=== PATIENT | female | born 1945 | race Caucasian/White ===

== ENCOUNTER → 2016-05-28 | Outpatient (CLI) | payer OTHER ==
[~2016-05-28] MED LIST: ALOE VERA PO; AMLO5TAB2 PO; ASPI-496 PO; CAL ZINC PO; CEPH-368 PO; CHOL5000 PO; CITA10TA4 PO; CITA20TA9 PO; DOCU100T6 PO; ESTR0.6246 VG; GINKO BILOBA PO; GLUC10002 PO; HYDR-882 PO; LATA2.5D3 EACHEYE; LEVO112T2 PO; LEVO112T4 PO; OMEG1CAP12 PO; OMEG300C PO; OMEP20CA9 PO; OMEP20TA62 PO; ONDA4TAB10 PO; [UNRECOGNIZED DRUG - CODE] PO
== END | disposition home or self-care (01) ==
LOC: STAR 08:34
PROVIDERS: ATTEND Colon & Rectal Surgery
DX: Z01.818 Encounter for other preprocedural examination (principal)
CPT/HCPCS: 81001; 87086; 93005

== ENCOUNTER 2016-06-05 08:56 | Inpatient (IN) | payer OTHER ==
[~2016-06-05] VITALS: Ht 162.6 cm; Wt 104.2 kg
[~2016-06-05 08:56] MED LIST changes: +BUPIVACAINE/PF-EPI 0.25% 1:200K ONE
[2016-06-05] MEDS ORDERED: FENTANYL PF 250 MCG/5ML ONE (09:02)
[2016-06-05 09:20] VITALS: BP 135/89
[2016-06-05] MEDS ORDERED: METR500T4 PO (09:20)
[2016-06-05] MEDS ORDERED: NEOM500T PO (09:20)
[2016-06-05] MEDS ORDERED: LACTATED RINGERS 1,000 ML IV SCH (09:23)
[2016-06-05] MEDS ORDERED: EPHEDRINE 50 MG/ML, 1ML ONE (09:34)
[2016-06-05] MEDS ORDERED: ROCURONIUM 10 MG/ML ONE (09:34)
[2016-06-05] MEDS ORDERED: ONDANSETRON 2MG/ML, 2ML ONE (09:34)
[2016-06-05] MEDS ORDERED: PHENYLEPHRINE 10 MG/ML ONE (09:34)
[2016-06-05] MEDS ORDERED: GLYCOPYRROLATE 0.2MG/1ML ONE (09:34)
[2016-06-05] MEDS ORDERED: CEFOTETAN 2 GM ONE (09:34)
[2016-06-05] MEDS ORDERED: KETOROLAC 30 MG/1 ML ONE (09:34)
[2016-06-05] MEDS ORDERED: PROPOFOL 10 MG/ML, 20ML ONE (09:34)
[2016-06-05] MEDS ORDERED: DEXAMETHASONE 4 MG/ML, 1ML ONE (09:34)
[2016-06-05] MEDS ORDERED: ACETAMINOPHEN 650 MG/20.3 ML UDC ONE (11:28)
[2016-06-05] MEDS ORDERED: ACETAMINOPHEN 325 MG TABLET ONE (11:29)
[2016-06-05] MEDS ORDERED: FENTANYL PF 100 MCG/2ML ONE (11:29)
[2016-06-05] MEDS ORDERED: ACETAMINOPHEN 325 MG TABLET PO PRN (11:30)
[2016-06-05] MEDS ORDERED: OXYcodone 5 MG/5 ML ORAL.SOL UDC PO PRN (11:30)
[2016-06-05] MEDS ORDERED: PROMETHAZINE 25 MG/ML, 1ML IV PRN (11:30)
[2016-06-05] MEDS ORDERED: ONDANSETRON 2MG/ML, 2ML IVPush PRN (11:30)
[2016-06-05] MEDS ORDERED: OXYcodone 5 MG/5 ML ORAL.SOL UDC ONE (11:36)
[2016-06-05] MEDS: FENTANYL PF 100 MCG/2ML IV PRN ×2 (11:45→11:55)
[2016-06-05] MEDS ORDERED: LACTATED RINGERS 500 ML IVBOLUS ONE (13:30)
[2016-06-05] MEDS ORDERED: ADENOSINE 6 MG/2 ML ONE (14:05)
[2016-06-05] MEDS ORDERED: ADENOSINE 6 MG/2 ML IVPush ONE (14:30)
[2016-06-05 14:53] LABS: BLOOD UREA NITROGEN 21 mg/dL (7-18)
[2016-06-05] MEDS ORDERED: DIPHENHYDRAMINE 25 MG CAPSULE PO PRN (16:00)
[2016-06-05] MEDS ORDERED: DIPHENHYDRAMINE 50 MG/ML, 1ML IV PRN (16:00)
[2016-06-05] MEDS ORDERED: ONDANSETRON 2MG/ML, 2ML IV PRN (16:30)
[2016-06-05] MEDS: KETOROLAC 30 MG/1 ML IV SCH ×2 (16:35→22:16)
[2016-06-05] MEDS: POTASSIUM CHLORIDE 20 MEQ in SODIUM CHLORIDE 0.9% 1,000 ML IV SCH (16:35)
[2016-06-05] MEDS: OXYcodone/APAP 5/325MG TABLET PO PRN ×2 (18:42→22:46)
[2016-06-05 21:03] VITALS: BP 100/65
[2016-06-05] MEDS: AMLODIPINE 5 MG TABLET PO SCH (22:16)
[2016-06-05] MEDS: CEFOTETAN PMX 2GM/50ML 50 ML IVPB SCH (22:17)
[2016-06-05] MEDS: LATANOPROST OPHTH 0.005%, 2.5ML OP SCH (22:27)
[2016-06-06 02:00] VITALS: BP 111/62
[2016-06-06] MEDS: OXYcodone/APAP 5/325MG TABLET PO PRN ×5 (02:59→20:19)
[2016-06-06] MEDS: KETOROLAC 30 MG/1 ML IV SCH ×4 (05:19→22:43)
[2016-06-06] MEDS: LEVOTHYROXINE 112 MCG TABLET PO SCH (05:19)
[2016-06-06] MEDS: ASPIRIN 81 MG TABLET EC PO SCH (06:19)
[2016-06-06 06:42] LABS: BLOOD UREA NITROGEN 19 mg/dL (7-18)
[2016-06-06 07:39] VITALS: BP 103/64
[2016-06-06] MEDS: OMEPRAZOLE 20 MG CAPSULE.DR PO SCH (09:07)
[2016-06-06] MEDS: CITALOPRAM 10 MG TABLET PO SCH (09:07)
[2016-06-06] MEDS: ENOXAPARIN 40 MG/0.4 ML SQ SCH (09:08)
[2016-06-06] MEDS: CEFOTETAN PMX 2GM/50ML 50 ML IVPB SCH (09:25)
[2016-06-06] MEDS: POTASSIUM CHLORIDE 20 MEQ in SODIUM CHLORIDE 0.9% 1,000 ML IV SCH (13:00)
[2016-06-06 14:00] VITALS: BP 130/77
[2016-06-06 20:17] VITALS: BP 139/75
[2016-06-06] MEDS: LATANOPROST OPHTH 0.005%, 2.5ML OP SCH (20:19)
[2016-06-06] MEDS: AMLODIPINE 5 MG TABLET PO SCH (20:19)
[2016-06-07 04:00] VITALS: BP 121/76
[2016-06-07] MEDS: ASPIRIN 81 MG TABLET EC PO SCH (04:23)
[2016-06-07] MEDS: LEVOTHYROXINE 112 MCG TABLET PO SCH (04:23)
[2016-06-07] MEDS: KETOROLAC 30 MG/1 ML IV SCH ×4 (04:23→23:32)
[2016-06-07] MEDS: OXYcodone/APAP 5/325MG TABLET PO PRN ×4 (04:24→20:58)
[2016-06-07 07:57] VITALS: BP 138/57
[2016-06-07] MEDS: OMEPRAZOLE 20 MG CAPSULE.DR PO SCH (08:35)
[2016-06-07] MEDS: CITALOPRAM 10 MG TABLET PO SCH (08:36)
[2016-06-07] MEDS: ENOXAPARIN 40 MG/0.4 ML SQ SCH (08:36)
[2016-06-07 12:18] VITALS: BP 132/83
[2016-06-07] MEDS: POTASSIUM CHLORIDE 20 MEQ in SODIUM CHLORIDE 0.9% 1,000 ML IV SCH (12:35)
[2016-06-07 19:56] VITALS: BP 143/83
[2016-06-07] MEDS: AMLODIPINE 5 MG TABLET PO SCH (20:58)
[2016-06-07] MEDS: LATANOPROST OPHTH 0.005%, 2.5ML OP SCH (20:58)
[2016-06-07 20:59] VITALS: BP 137/81
[2016-06-08 02:59] VITALS: BP 149/76
[2016-06-08] MEDS: KETOROLAC 30 MG/1 ML IV SCH ×3 (05:27→17:28)
[2016-06-08] MEDS: OXYcodone/APAP 5/325MG TABLET PO PRN ×3 (05:27→17:27)
[2016-06-08] MEDS: LEVOTHYROXINE 112 MCG TABLET PO SCH (05:27)
[2016-06-08] MEDS: ASPIRIN 81 MG TABLET EC PO SCH (05:27)
[2016-06-08 09:07] VITALS: BP 133/82
[2016-06-08] MEDS: OMEPRAZOLE 20 MG CAPSULE.DR PO SCH (09:50)
[2016-06-08] MEDS: ENOXAPARIN 40 MG/0.4 ML SQ SCH (09:51)
[2016-06-08] MEDS: CITALOPRAM 10 MG TABLET PO SCH (09:51)
[2016-06-08] MEDS: POTASSIUM CHLORIDE 20 MEQ in SODIUM CHLORIDE 0.9% 1,000 ML IV SCH (09:51)
[2016-06-08 13:33] VITALS: BP 129/81
== END 2016-06-08 17:57 | disposition home or self-care (01) | DRG 330 ==
LOC: ORIP 08:56 → 5SO 15:07
PROVIDERS: ADMIT Colon & Rectal Surgery; ATTEND Colon & Rectal Surgery
PROC: 0DTF4ZZ Resection of Right Large Intestine, Percutaneous Endoscopic Approach (ICD-10-PCS; principal; 2016-06-05 09:30)
DX: K56.2 Volvulus (principal); E44.0 Moderate protein-calorie malnutrition; I49.9 Cardiac arrhythmia, unspecified; E03.9 Hypothyroidism, unspecified; Z90.49 Acquired absence of other specified parts of digestive tract; Z90.710 Acquired absence of both cervix and uterus; Z90.89 Acquired absence of other organs; Z90.722 Acquired absence of ovaries, bilateral; Z88.2 Allergy status to sulfonamides; Z88.8 Allergy status to other drugs, medicaments and biological substances; Z81.8 Family history of other mental and behavioral disorders; K21.9 Gastro-esophageal reflux disease without esophagitis
CPT/HCPCS: 36415; 80048; 82040; 83735; 85025; 86850; 86900; 88307; 93005; J0153; J1100; J1650; J1885; J2405; J2704; J3010; J3480; J3490; J7120; J2370; J7030; S0074

== ENCOUNTER 2018-10-04 11:25 | Outpatient (CLI) | payer MEDICARE | END 2018-10-04 23:59 | disposition home or self-care (01) | LOC: RAD 11:25 | PROVIDERS: ATTEND Internal Medicine Pulmonary Disease | DX: J90 Pleural effusion, not elsewhere classified (principal); R06.00 Dyspnea, unspecified | CPT/HCPCS: 32555; 82945; 83615; 84157; 87015; 87070; 87102; 87116; 87205; 87206; 88112; 88184; 88185; 88305; 89051 ==

== ENCOUNTER 2019-01-18 14:43 | Outpatient (CLI) | payer MEDICARE ==
[~2019-01-18 14:43] MED LIST changes: +AMLO-150 PO; -AMLO5TAB2 PO; -BUPIVACAINE/PF-EPI 0.25% 1:200K ONE; -GLUC10002 PO; +HYDR-3653 PO; -HYDR-882 PO; +METR-90 PO; +NEOM500T PO; -OMEG1CAP12 PO; +OMEG1CAP23 PO; +[UNRECOGNIZED DRUG - CODE] PO
[2019-01-18] MEDS ORDERED: OXYC-302 PO (15:22)
[2019-01-18] MEDS ORDERED: GLUC1TAB91 PO (15:22)
[2019-01-18] MEDS ORDERED: PRED10TA PO (15:22)
[2019-01-18 16:05] LABS: ALANINE AMINOTRANSFERASE 27 U/L (12-78); ALBUMIN 3.4 g/dL (3.4-5.0); ANION GAP 5 mmol/L (5-15); CALCIUM 9.7 mg/dL (8.5-10.1); CHLORIDE 106 mmol/L (98-107)
[2019-01-18 16:08] LABS: ALKALINE PHOSPHATASE 69 U/L (45-117); BILIRUBIN,TOTAL 0.3 mg/dL (0.2-1.0); CREATININE 0.91 mg/dL (0.55-1.02); TOTAL PROTEIN 7.4 g/dL (6.4-8.2)
[2019-01-18 16:09] LABS: BASOPHILS % (AUTO) 0 % (0-1); EOSINOPHILS # (AUTO) 0.01 x10^3/uL (0-0.4); EOSINOPHILS % (AUTO) 0 % (1-7); LYMPHOCYTES % (AUTO) 9 % (22-44); MD NO; MEAN CORPUSCULAR HEMOGLOBIN 28.6 pg (27.0-34.8); MEAN CORPUSCULAR VOLUME 89.2 fL (80-100); MEAN PLATELET VOLUME 7.9 fL (7.4-10.4); MONOCYTES # (AUTO) 0.07 x10^3/uL (0.2-0.8); MONOCYTES % (AUTO) 1 % (2-9); NEUTROPHILS # (AUTO) 10.71 x10^3/uL (1.8-6.8); NEUTROPHILS % (AUTO) 91 % (42-75); PLATELET COUNT 288 x10^3/uL (130-400); RED BLOOD COUNT 4.79 x10^6/uL (3.82-5.3)
== END 2019-01-18 23:59 | disposition home or self-care (01) ==
LOC: STAR 14:43
PROVIDERS: ATTEND Thoracic Surgery (Cardiothoracic Vascular Surgery)
DX: Z01.818 Encounter for other preprocedural examination (principal)
CPT/HCPCS: 36415; 80053; 85025; 93005

== ENCOUNTER 2019-01-26 09:05 | Inpatient (IN) | payer MEDICARE ==
[~2019-01-26] VITALS: Ht 162.6 cm; Wt 110.8 kg
[~2019-01-26 09:05] MED LIST changes: +BUPIVACAINE/PF 0.5% ONE; +GLUC1TAB91 PO; +OXYC-302 PO; +PRED10TA PO; +TALC 4 GM VIAL INTRAPL ONE
[2019-01-26] MEDS ORDERED: LACTATED RINGERS 1,000 ML IV SCH (09:22)
[2019-01-26] MEDS ORDERED: ACETAMINOPHEN 500 MG TABLET PO ONE (09:30)
[2019-01-26] MEDS ORDERED: LIDOCAINE-MPF 1%, 2ML INFIL ONE (09:30)
[2019-01-26 09:39] VITALS: BP 156/78
[2019-01-26] MEDS ORDERED: LABETALOL 5MG/ML, 20ML IV PRN (10:00)
[2019-01-26] MEDS ORDERED: hydrALAzine 20 MG/ML, 1ML IV PRN (10:00)
[2019-01-26] MEDS ORDERED: MEPERIDINE/PF 25MG/ML,1ML IVPush PRN (10:00)
[2019-01-26] MEDS ORDERED: PROMETHAZINE 25 MG/ML, 1ML IV PRN (10:00)
[2019-01-26] MEDS ORDERED: OXYcodone 5 MG/5 ML ORAL.SOL UDC PO PRN (10:00)
[2019-01-26] MEDS ORDERED: FLU VACC QS2019-20 36MOS UP/PF 0.5 ML IM-VACC ONE (10:00)
[2019-01-26] MEDS ORDERED: EPHEDRINE 50 MG/ML, 1ML IVPush PRN (10:00)
[2019-01-26] MEDS ORDERED: ONDANSETRON 2MG/ML, 2ML IV PRN (10:00)
[2019-01-26] MEDS ORDERED: NEOSTIGMINE 1 MG/ML, 10ML ONE (10:13)
[2019-01-26] MEDS ORDERED: CEFAZOLIN 1,000 MG ONE (10:13)
[2019-01-26] MEDS ORDERED: SUCCINYLCHOLINE 20 MG/ML, 10ML ONE (10:13)
[2019-01-26] MEDS ORDERED: PROPOFOL 10 MG/ML, 20ML ONE (10:13)
[2019-01-26] MEDS ORDERED: FENTANYL PF 100 MCG/2ML ONE ×3 (10:13→12:21)
[2019-01-26] MEDS ORDERED: ONDANSETRON 2MG/ML, 2ML ONE (10:13)
[2019-01-26] MEDS ORDERED: ROCURONIUM 10MG/ML,5ML ONE (10:13)
[2019-01-26] MEDS ORDERED: GLYCOPYRROLATE 0.2MG/1ML, 5ML ONE (10:13)
[2019-01-26] MEDS ORDERED: DEXAMETHASONE 4 MG/ML, 1ML ONE (10:13)
[2019-01-26] MEDS ORDERED: EPINEPHRINE 1 MG/ML, 1ML INFIL ONE (11:10)
[2019-01-26] MEDS ORDERED: EPHEDRINE 50 MG/ML, 1ML ONE (11:20)
[2019-01-26] MEDS ORDERED: hydrALAzine 20 MG/ML, 1ML IVPush PRN (12:00)
[2019-01-26] MEDS ORDERED: ONDANSETRON 2MG/ML, 2ML IVPush PRN (12:00)
[2019-01-26] MEDS ORDERED: ENALAPRILAT 1.25 MG/ML, 2ML IVPush PRN (12:00)
[2019-01-26] MEDS ORDERED: FAMOTIDINE 20 MG/2 ML IVPush SCH (12:00)
[2019-01-26] MEDS ORDERED: DIPHENHYDRAMINE 50 MG/ML, 1ML IVPush PRN (12:00)
[2019-01-26] MEDS ORDERED: DIPHENHYDRAMINE 25 MG CAPSULE PO PRN (12:00)
[2019-01-26] MEDS ORDERED: LORazepam 1MG TABLET PO PRN (12:00)
[2019-01-26] MEDS ORDERED: ACETAMINOPHEN 650 MG SUPP PR PRN (12:00)
[2019-01-26] MEDS ORDERED: KETOROLAC 30 MG/1 ML IVPush PRN ×2 (12:00→13:05)
[2019-01-26] MEDS ORDERED: LORazepam 2 MG/ML, 1ML IVPush PRN (12:00)
[2019-01-26] MEDS ORDERED: ACETAMINOPHEN 325 MG TABLET PO PRN (12:00)
[2019-01-26] MEDS ORDERED: FAMOTIDINE 20 MG TABLET PO SCH (12:00)
[2019-01-26] MEDS ORDERED: OXYcodone 5 MG/5 ML ORAL.SOL UDC ONE (12:21)
[2019-01-26] MEDS ORDERED: ACETAMINOPHEN 650 MG/20.3 ML UDC ONE (12:21)
[2019-01-26] MEDS ORDERED: KETOROLAC 30 MG/1 ML ONE (12:21)
[2019-01-26] MEDS: FENTANYL PF 100 MCG/2ML IV PRN ×2 (12:23→12:30)
[2019-01-26] MEDS ORDERED: FAMOTIDINE 20 MG TABLET ONE (13:36)
[2019-01-26] MEDS: LACTATED RINGERS 1,000 ML IV SCH ×2 (13:39→21:58)
[2019-01-26 14:12] VITALS: BP 100/66
[2019-01-26] MEDS: OXYcodone IR 5MG TABLET PO PRN ×2 (17:00→21:35)
[2019-01-26 19:32] VITALS: BP 114/71
[2019-01-26] MEDS: FAMOTIDINE 20 MG TABLET PO SCH (20:05)
[2019-01-26] MEDS: LATANOPROST OPHTH 0.005%, 2.5ML EACHEYE SCH (20:21)
[2019-01-26] MEDS: AMLODIPINE 5 MG TABLET PO SCH (21:34)
[2019-01-27 02:00] VITALS: BP 116/72
[2019-01-27] MEDS: OXYcodone IR 5MG TABLET PO PRN ×3 (02:35→20:18)
[2019-01-27 04:40] LABS: BASOPHILS % (AUTO) 0 % (0-1); EOSINOPHILS % (AUTO) 0 % (1-7); LYMPHOCYTES # (AUTO) 0.87 x10^3/uL (1-3.4); LYMPHOCYTES % (AUTO) 8 % (22-44); MD NO; MEAN CORPUSCULAR HEMOGLOBIN 28.6 pg (27.0-34.8); MEAN CORPUSCULAR HGB CONC 32.4 g/dL (32.4-35.8); MEAN CORPUSCULAR VOLUME 88.3 fL (80-100); MEAN PLATELET VOLUME 7.7 fL (7.4-10.4); MONOCYTES # (AUTO) 0.59 x10^3/uL (0.2-0.8); MONOCYTES % (AUTO) 5 % (2-9); NEUTROPHILS # (AUTO) 9.49 x10^3/uL (1.8-6.8); NEUTROPHILS % (AUTO) 87 % (42-75); PLATELET COUNT 227 x10^3/uL (130-400); RED BLOOD COUNT 4.04 x10^6/uL (3.82-5.3); RED CELL DISTRIBUTION WIDTH 15.6 % (9.6-15.2)
[2019-01-27 04:49] LABS: ANION GAP 3 mmol/L (5-15); CALCIUM 9.3 mg/dL (8.5-10.1); CHLORIDE 106 mmol/L (98-107); CREATININE 1.12 mg/dL (0.55-1.02)
[2019-01-27] MEDS: LEVOTHYROXINE 112 MCG TABLET PO SCH (06:44)
[2019-01-27 08:44] VITALS: BP 121/74
[2019-01-27] MEDS ORDERED: ENOXAPARIN 40 MG/0.4 ML SQ SCH (09:00)
[2019-01-27] MEDS: CITALOPRAM 10 MG TABLET PO SCH (09:52)
[2019-01-27] MEDS: FAMOTIDINE 20 MG TABLET PO SCH (09:52)
[2019-01-27] MEDS: ENOXAPARIN 30 MG/0.3 ML SQ SCH ×2 (09:52→20:17)
[2019-01-27] MEDS ORDERED: FLU VACC QS2019-20 36MOS UP/PF 0.5 ML IM-VACC ONE (10:00)
[2019-01-27 13:03] VITALS: BP 108/67
[2019-01-27] MEDS: AMLODIPINE 5 MG TABLET PO SCH (20:18)
[2019-01-27 20:20] VITALS: BP 134/76
[2019-01-27] MEDS: LATANOPROST OPHTH 0.005%, 2.5ML EACHEYE SCH (20:30)
[2019-01-27] MEDS ORDERED: AMLODIPINE 5 MG TABLET PO SCH (21:00)
[2019-01-27 21:21] VITALS: BP 113/69
[2019-01-28 01:27] VITALS: BP 137/83
[2019-01-28] MEDS: LEVOTHYROXINE 112 MCG TABLET PO SCH (05:24)
[2019-01-28 06:54] VITALS: BP 130/80
[2019-01-28] MEDS: ENOXAPARIN 30 MG/0.3 ML SQ SCH (09:38)
[2019-01-28] MEDS: CITALOPRAM 10 MG TABLET PO SCH (09:38)
[2019-01-28] MEDS: FAMOTIDINE 20 MG TABLET PO SCH (09:38)
[2019-01-28] MEDS: OXYcodone IR 5MG TABLET PO PRN (09:39)
[2019-01-28] MEDS ORDERED: HYDR-3240 PO (09:47)
== END 2019-01-28 10:39 | disposition home or self-care (01) | DRG 165 ==
LOC: ORIP 09:05 → 4NW 13:13 → DCLOUNGE 01-28 10:21
PROVIDERS: ADMIT Thoracic Surgery (Cardiothoracic Vascular Surgery); ATTEND Thoracic Surgery (Cardiothoracic Vascular Surgery)
PROC: 3E0L4GC Introduction of Other Therapeutic Substance into Pleural Cavity, Percutaneous Endoscopic Approach (ICD-10-PCS; 2019-01-26)
PROC: 0BNK4ZZ Release Right Lung, Percutaneous Endoscopic Approach (ICD-10-PCS; principal; 2019-01-26 11:30)
DX: J90 Pleural effusion, not elsewhere classified (principal); Z88.5 Allergy status to narcotic agent; Z88.8 Allergy status to other drugs, medicaments and biological substances; K21.9 Gastro-esophageal reflux disease without esophagitis; E03.9 Hypothyroidism, unspecified; Z90.710 Acquired absence of both cervix and uterus; Z90.49 Acquired absence of other specified parts of digestive tract; Z80.59 Family history of malignant neoplasm of other urinary tract organ; Z82.0 Family history of epilepsy and other diseases of the nervous system
CPT/HCPCS: 36415; 71045; 80048; 85025; 86850; 86900; 87070; 87075; 87205; 88305; 90686; C1729; G0378; J0171; J0690; J1100; J1650; J1885; J2405; J2704; J2710; J3010; J0330; J7120; J7512